=== PATIENT | male | born 1965 | race Caucasian/White ===

== ENCOUNTER → 2024-11-11 | Day surgery (SDC) | payer MEDICARE, OTHER ==
[~2024-11-11] MED LIST: HYDROcodone/APAP 5-325MG 1 EACH TAB PO PRN
[2024-11-11 08:33] VITALS: TEMP 98
[2024-11-11] MEDS: diazePAM 5 MG TAB PO STA (08:37)
[2024-11-11 11:20] VITALS: RESP 16
--- NOTE | 2024-11-11 11:22 | CT ---
EXAMINATION TYPE: CT cervical spine w con DATE OF EXAM: 11/11/2024 10:40 AM COMPARISON: 12/25/2024. CLINICAL INDICATION: Male, 59 years old with history of M54.2 CERVICALGIA; neck pain TECHNIQUE: Axial CT images from the skull base to the inferior aspect of T2 we obtained without intra venous contrast. Coronal and sagittal reformatted images were also reviewed. Contrast used:15 mL of Isovue M200 with IV Contrast, (if blank None) Oral contrast used: (if blank None) CT DLP: 511 mGycm, Automated exposure control for dose reduction was used. Intrathecal contrast was administered prior to scanning. FINDINGS: Fracture: None. Osseous structures: Postsurgical changes to the C5-C6 and C6-C7 disc spaces. Vertebral alignment: Alignment within normal limits. Spinal canal/Neural Foramina: No evidence of significant spinal canal narrowing. No evidence for sign ificant neural foraminal stenosis. Neck soft tissues: Prevertebral soft tissues are within normal limits. Other: The airway is patent. The lung apices are clear. IMPRESSION: Post surgical changes to C5-C6 and C6-C7. The spinal canal and neural foramen are patent. No signific ant neural foraminal or spinal canal stenosis. [facility], , 11/11/2024 11:19 AM
[2024-11-11] MEDS: HYDROcodone/APAP 5-325MG 1 EACH TAB PO PRN (11:25)
[2024-11-11 14:08] VITALS: BP 161/91; PULSE 81
--- NOTE | 2024-11-11 14:33 | FL ---
EXAMINATION TYPE: FL myelogram cervical DATE OF EXAM: 11/11/2024 CLINICAL INDICATION: Male, 59 years old with history of M54.2 CERVICALGIA, neck pain. History of prio r surgery about 5 years ago. TECHNIQUE: Fluoroscopy assisted lumbar puncture for contrast injection for subsequent CT. COMPARISON: None. FINDINGS: Fluoroscopic guidance was provided during lumbar puncture procedure performed by myself. A total of 2 minutes 23 seconds of fluoroscopic time was utilized during the procedure and 3 spot luis ges was acquired. TOTAL DAP = n/p. Procedure was explained to patient. Benefits, alternatives, risks were discussed. Informed consent wa s obtained. Vital signs were monitored before during and after procedure. Patient complains of pain b efore during and after procedure without significant increase. L3 level was chosen. Overlying skin was cleansed with Betadine. Lidocaine issues of anesthetic into t he skin and deeper tissue. Under fluoroscopic guidance, a spinal needle was introduced into the lumba r spinal canal and approximately 10 cc of Isovue-M 300 was injected. Needle is withdrawn. Images show adequate insertion of contrast. Patient tolerated procedure well without any immediate complication. Patient was placed in headdown p osition to get contrast to flow to the neck. Subsequent CT images are satisfactory and dictated separ ately. Following CT patient was kept in the hospital for short stay after the procedure and then discharged home in stable and satisfactory condition. IMPRESSION: Successful lumbar puncture for contrast insertion for subsequent CT myelogram cervical sp ine. No immediate complication noted. [facility], , 11/11/2024 2:31 PM
== END ==
LOC: RADPROMAIN 08:10
PROVIDERS: ATTEND Nurse Practitioner Family
DX: M47.22 Other spondylosis with radiculopathy, cervical region (principal)
CPT/HCPCS: 62302; 72126; Q9967

== ENCOUNTER 2025-03-22 23:19 | Emergency (ER) | payer MEDICARE, OTHER ==
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
[2025-03-23] MEDS: oxyCODONE-APAP 10-325MG 1 EACH TAB PO STA (01:30)
[2025-03-23 01:34] VITALS: BP 108/79; PULSE 98; RESP 19; TEMP 98.1
--- NOTE | 2025-03-23 01:49 | XR ---
EXAM: XR Left Tibia and Fibula, 2 Views CLINICAL HISTORY: ITS.REASON XR Reason: calf pain TECHNIQUE: Frontal and lateral views of the left tibia and fibula. COMPARISON: No relevant prior studies available. FINDINGS: Bones/joints: Small heel spur measures 4 mm. No acute fracture. No dislocation. Soft tissues: Unremarkable. No radiopaque foreign body. IMPRESSION: No acute findings in the left tibia and fibula or surrounding soft tissues.
== END 2025-03-23 04:20 | disposition home or self-care (01) ==
LOC: EC 23:19
DX: S80.12XA Contusion of left lower leg, initial encounter (principal); F17.200 Nicotine dependence, unspecified, uncomplicated; Z88.5 Allergy status to narcotic agent; Z88.8 Allergy status to other drugs, medicaments and biological substances; W22.8XXA Striking against or struck by other objects, initial encounter
CPT/HCPCS: 99283